=== PATIENT | female | born 2000 | race Two or more races ===

== ENCOUNTER 2024-08-17 20:42 | Emergency (ER) | payer BC ==
[~2024-08-17] VITALS: Ht 167.6 cm; Wt 75.7 kg
[2024-08-18] MEDS ORDERED: HYDROCODONE/CHLORPHEN P-STIREX 5 ML ML PO STA (00:03)
== END 2024-08-18 01:04 | disposition home or self-care (01) ==
LOC: ER 20:42
DX: J06.9 Acute upper respiratory infection, unspecified (principal); Z88.2 Allergy status to sulfonamides